=== PATIENT | female | born 1990 | race Asian ===

== ENCOUNTER 2018-01-22 13:32 | Emergency (ER) | payer SELFPAY ==
[2018-01-22] MEDS ORDERED: Doxycycline 100 MG Cap PO ONE (14:34)
--- NOTE | 2018-01-22 14:41 | EDM.PDOC ---
ED HPI GENERAL MEDICAL PROBLEM - General Chief Complaint: Skin Complaint Stated Complaint: SWOLLEN LYMPH NODES, ABSCESS ON NECK Time Seen by Provider: 01/22/18 14:20 Source of Information: Reports: Patient History Limitations: Reports: No Limitations - History of Present Illness INITIAL COMMENTS - FREE TEXT/NARRATIVE: Patient is a 27-year-old female who presents to the ED complaining of a abscess to the back of her neck along the hairline. Patient states approximately 2 months ago had this abscess drained. She was placed on Augmentin for a short period of time with no resolution of the abscess. Has continued to drain ever since. As of recent she's developed increased swelling to her lymph nodes along the posterior cervical chain. She has no history of MRSA. She has been scratching bug bites and popping zits along the hairline and neck. She denies recent antibiotic use. There is no fever, chills, nausea vomiting, or any additional complaints. She currently has no past medical history and currently taking no medications. 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 ED EXAM, SKIN/RASH Exam: See Below Exam Limited By: No Limitations General Appearance: Alert, WD/WN, No Apparent Distress Ears: Hearing Grossly Normal Nose: Normal Inspection Throat/Mouth: Normal Voice, No Airway Compromise Head: Other (Small abscess to the base of the skull along the hairline with minimal drainage, pain, and or redness. Increased swelling of the lymphnodes of the posterior cervial chain. No stiff neck. ) Neck: Normal Inspection Respiratory/Chest: No Respiratory Distress, Lungs Clear, Normal Breath Sounds, No Accessory Muscle Use, Chest Non-Tender Cardiovascular: Normal Peripheral Pulses, Regular Rate, Rhythm, No Murmur Neurological: Alert, Oriented, CN II-XII Intact, Normal Cognition, No Motor/ Sensory Deficits Psychiatric: Normal Affect, Normal Mood Skin: Warm, Dry Course - Vital Signs Last Recorded V/S: Last Vital Signs Temp 97.2 F 01/22/18 13:41 Pulse 79 01/22/18 13:41 Resp 18 01/22/18 13:41 BP 127/92 H 01/22/18 13:41 Pulse Ox 99 01/22/18 13:41 - Orders/Labs/Meds Meds: Medications Discontinued Medications Generic Name Dose Route Start Last Admin Trade Name Freq PRN Reason Stop Dose Admin Doxycycline Hyclate 200 mg 01/22/18 14:34 01/22/18 14:39 Vibramycin PO 01/22/18 14:35 200 mg ONETIME ONE Administration - Re-Assessments/Exams Free Text/Narrative Re-Assessment/Exam: Patient has a small abscess to the base of the skull on the hairline with some minimal drainage present. This has contributed to some lymphadenopathy along the occipital chain and also posterior cervical chain as well. I will place patient on doxycycline. Adequate MRSA coverage. Patient has no MRSA history. She was instructed to apply warm compresses throughout the course of the day 3- 5 times, 30 minutes in duration wash her hands frequently, cover if draining, take full course of antibiotic as prescribed with [id number] probiotic. She needs to follow-up with her primary care provider at conclusion of therapy. Departure - Departure Time of Disposition: 14:42 Disposition: Home, Self-Care 01 Condition: Good Clinical Impression: Abscess of skin of neck - Discharge Information Prescriptions: Doxycycline [Vibramycin] 100 mg PO BID #20 cap Instructions: Skin Abscess Referrals: PCP,None [Primary Care Provider] - Forms: ED Department Discharge Additional Instructions: Take the doxycycline as prescribed. Apply warm compresses to the affected area, 3-5 times a day, 30 minutes in duration. Keep covered if draining. Wash your hands frequently. Do not scratch bug bites and pop zits due to increased risk of developing a skin infection. Please follow up with primary care provider at conclusion of therapy to ensure resolution. Return to the ED if you develop any new or worsening symptoms. May use ibuprofen and Tylenol for pain.
== END 2018-01-22 14:50 | disposition home or self-care (01) ==
LOC: JD.ED 13:32
DX: L02.11 Cutaneous abscess of neck (principal); F17.210 Nicotine dependence, cigarettes, uncomplicated; Z91.013 Allergy to seafood
CPT/HCPCS: 99283; A9270